=== PATIENT | male | born 1960 | race Caucasian/White ===

== ENCOUNTER 2023-09-22 13:07 | Outpatient (AMB) | payer OTHER, SELFPAY ==
--- NOTE | 2023-09-22 13:23 | HO.SPINEOV ---
Intake Intake Visit Reasons: neck and lower back pain Intake Note: Mr. Tipton is here today c/o neck and low back pain. 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 We know him from our practice at [place], we have seen him before in the past for issues with his legs. He was diagnosed with neuropathy. Today he comes in with complaints of neck pain, posterior headaches and arm pains. He will underwent a C6 TFE without any success. He is considering going back to opioid pain management to help with some of the symptoms. Currently, because he just got out of the hospital was treated with high-dose steroids the pain is not so bad. 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 He has been in the hospital with pneumonia and COPD flare-ups 3 times this year. I reviewed his imaging from [place] showing severe degenerative disc disease at C5-6 with foraminal stenosis, which is where we think his symptoms could be coming from. I had an honest conversation with him about the fact that in order to treat this surgically we would have to go through the front of his neck and that he would be high risk for complications given his unstable medical conditions and his COPD airway issues. Specifically retraction of the trachea and anesthesia/intubation would pose significant risk for him. I told him it unfortunately would be best to just try to continue to treat this medically as best as possible given his substantial risks. We would be glad to see him back if something changes with his overall medical conditions. Total amount of time spent in this visit was 20 minutes in discussion of symptoms, cervical MRI imaging results and subsequent plan of care Henrique Fraga MD,PhD [facility] Coding Level of Care Code Est Pt Level 3 (28769) Diagnoses Cervical radiculopathy M54.12
== END 2023-09-22 14:43 | disposition home or self-care (01) ==
PROVIDERS: PCP Internal Medicine; Referring Provider Physician Assistant; Visit Provider Physician Assistant
DX: M54.12 Radiculopathy, cervical region (principal)
CPT/HCPCS: 99213

== ENCOUNTER → 2023-09-22 13:07 | Outpatient (BNVA) | payer OTHER, SELFPAY | PROVIDERS: Visit Provider Physician Assistant | DX: M54.12 Radiculopathy, cervical region (principal) | CPT/HCPCS: 99212 ==

== ENCOUNTER 2025-08-18 11:45 | Outpatient (AMB) | payer MEDICARE, MEDICAID, SELFPAY ==
--- NOTE | 2025-08-18 11:47 | A.PHYSOV_ITS ---
Vital Signs 08/18/25 11:49 Height 5 ft 8 in Weight 224 lb BMI 34.1 Intake Visit Reasons: 3M FUV Intake Note: Patient is a 65 year old male in office today for his 3 month narcotic management appointment. 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 Tipton is a 65-year-old male seen in evaluation today for chronic pain. His most pressing issues include cervical radiculitis, shoulder pain and low back pain with radiculopathy. He has not been responsive to cortisone injection. Patient is considering spinal cord stimulator with another pain management office. Patient has contracted for OxyContin 20 mg twice a day. He reports that the OxyContin usually works for about 8 hours. Patient is experiencing progressive lower extremity weakness. Patient has been prescribed a walker. Patient did not respond to Lyrica or gabapentin. Patient is anticoagulated. [facility] Surgical History (Updated 08/14/25 @ 17:30 by Keya Diaz MA) S/P CABG (coronary artery bypass graft) (Unknown) Social History (Updated 08/14/25 @ 17:31 by Keya Diaz MA) Household Members: Spouse Alcohol intake: current Alcohol intake frequency: does not drink Patient Tobacco Use Status: Never used Tobacco Current occupational status: retired Review of Systems Narrative Neck pain, low back pain with lower extremity weakness. No incontinence, saddle anesthesia urinary retention. Physical Exam Exam Exam: Cervical Spine: Examination of the cervical spine, there is no visible swelling or deformity. He is tender to bilateral upper trapezius with palpable spasm. She has marked limited range of motion of his cervical spine particularly extension and lateral rotation. Special Tests: Axial Compression test: Negative Spurlings test: Negative Lhermitte's sign is Negative Upper Extremities: Full range of motion bilateral upper extremities. Nontender to palpation. Negative Neer testing. Full range of motion of his elbow wrist and hand. Equal softball core molder strength bilaterally. Neuro: Sensation: Intact to upper extremities bilateral to light touch Strength C5 (Elbow Flexion): 5/5 on the left and 5/5 on the right. C6 (Elbow Ext): 5/5 on the left and 5/5 on the right. C7 (Elbow Ext): 5/5 on the left and 5/5 on the right. C8 (Finger Flex): 5/5 on the left and 5/5 on the right. T1 (Finger Abd/Add): 5/5 on the left and 5/5 on the right. DTR: C5 (Biceps): Left 1 Right 1 C6 (Brachioradialis): Left 1 Right 1 C7 (Triceps): Left 0 Right 0 Reyes sign: Negative No pathologic clonus. No involuntary movement. Lumbar Spine: Examination of his lumbar spine, there is no visible swelling or deformity. He is tender to lower lumbar facets. He is otherwise nontender. Full range of motion of his lumbar spine. He does have an increase in pain with facet loading. Special Tests: Lhermittes sign was negative Heel Toe walk is normal Left straight leg raise: Negative Right straight leg raise: Negative Special tests Oscar test is negative Ganslen's test is negative SI Joint compression test negative Grey test negative Piriformis stretch is negative Lower Extremities: Full range of motion bilateral lower extremities. No calf pain or edema. Neuro: Sensation: Intact to lower extremities bilaterally Strength L2 (Psoas): 5/5 on the left and 5/5 on the right. L3 (Quads): 5/5 on the left and 5/5 on the right. L4 (Ant tibialis): 5/5 on the left and 5/5 on the right. L5 (EHL) 5/5 on the left and 5/5 on the right. S1 (Gastroc): 5/5 on the left and 5/5 on the right. DTR L4: (Patellar) Left 1 Right 1 S1: (Achilles) Left 1 Right 1 Babinski Downgoing No pathologic clonus. No involuntary movement. Vital Signs: BMI result Body Mass Index 34.1 Assessment & Plan Assessment & Plan (1) Cervicalgia: Code(s): M54.2 - Cervicalgia Category: Medical (2) Lumbar radiculopathy: Code(s): M54.16 - Radiculopathy, lumbar region Category: Medical Plan Mr. Tipton is a 65-year-old male seen in evaluation today for chronic pain management. Epidural injection has not been helpful for the patient. Patient is currently involved with trial for spinal cord stimulator. He finds that OxyContin 20 mg becoming less effective. I recommend Butrans 10 mg for pain control as well as antagonist to reduce his risk of overdose. Patient will not operate any heavy machinery while taking the medication. I reviewed his mass pat and there are no red flags. We discussed the benefits of proper nutrition and exercise to maintain a healthy body weight to improve longevity and function. We also discussed the benefits of proper lifting techniques, core strengthening and proper posture. Follow-up in 3 months. Thank you for allowing me to participate in the care of your patient. Medications: New buprenorphine 10 mcg/hour (Butrans) 1 patch transdermal QWEEK 4 ea 0RF M54.12 - Radiculopathy, cervical region, M54.16 - Radiculopathy, lumbar region Coding Level of Care Code Tele Est Pt Level 3 (14983) Diagnoses Cervicalgia M54.2 Lumbar radiculopathy M54.16
[2025-08-18 11:49] VITALS: BMI 34.1
--- OUTSIDE RECORDS SUMMARY | 2025-08-18 15:40 | XMS_ITS | Encounter Summary ---
Author Organization [facility] Address [address] [place] [address] [address] [place] [address] Phone Care Team Providers Care Customer Development Representative Name Role Phone Remy Carvajal MD Primary Care Provider Encounter Details Date Type Department Care Team (Late st Contact Info) Description 07/26/2023 Procedure Pass [facility] [place] Referral Images [address] [place] [address] Social History Tobacco Use Types Packs/Day Years Used Date Smoking Tobacco: Never Assessed Education Answer Date Recorded Are you interested in more education? Not on bryan e 07/21/2023 Are you concerned about learning? Not on file 07/21/2023 No 07/21/2023 No 07/21/2023 Digital Access Answer Date Recorded No 07/21/2023 No 07/21/2023 Reliable internet access at home? Not on file 07/21/2023 Device with a working camera? Not on file Sex and Gender Information Value Date Recorded Sex Assigned at Male 07/18/2023 2:55 PM EDT Legal Sex Male 2:52 PM EDT Gender Identity Male 07/18/2023 2:55 PM EDT Sexual Orientation Straight 07/18/2023 2: 55 PM EDT documented as of this encounter Plan of Treatment Upcoming Encounters Date Type Department Care Team (Late st Contact Info) Description 10/01/2025 1:45 PM EST Appointment [facility] [address], [address] [place] [address] Juancarlos Contreras MD [address] [place], [place] [id number] [place] [address] [email or web address] documented as of this encounter Visit Diagnoses Not on filedocumented in this encounter Care Teams Customer Development Representative Relationship Specialty Start Date End Date Remy Carvajal MD [address] [place] [address] PCP - General Internal Medicine 07/18/23 documented as of this encounter Additional Source Comments The information contained in this document represents components of the legal health record. It is not the complete legal health record.[facility]
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
--- OUTSIDE RECORDS SUMMARY | 2025-08-18 15:40 | XMS_ITS | Clinical Summary ---
Author Organization [facility] Address [address] [place] [phone] Phone Care Team Providers Care Plant Tour Guide Name Role Phone Remy Carvajal MD Primary Care Provider Allergies Active Allergy Reactions Criticality Noted Date Comments Levofloxacin Hallucinations High 07/13/2020 Morphine Hallucinations,Hypot ension, Unknown High 06/09/2014 Rqopwir-Ezi-Sxd Reductase Inhibitors Myalgia Low 07/13/2020 Medications albuterol (VENTOLIN HFA) 90 mcg/actuation inhaler Inhale 2 puffs into the lungs. 04/18/2023 Active budesonide-formo terol (SYMBICORT) 160-4.5 mcg/actuation inhaler Inhale 2 puffs into the lungs. 04/18/2023 Active cholecalciferol (VITAMIN D3) 5,000 unit tablet Take by mouth. Active clopidogrel (PLAVIX) 75 mg tablet Take 1 tablet by mouth daily. 04/12/2023 Active ezetimibe (ZETIA) 10 mg tablet Take 1 tablet by mouth daily. 05/17/2023 Active isosorbide mononitrate (IMDUR) 120 MG 24 hr tablet Take 1 tablet by mouth daily. 04/18/2023 Active nitroglycerin (NITROLINGUAL) 400 mcg/spray spray Place 0.4 mg under the tongue. 05/02/2023 Active oxyCODONE (OXYCONTIN) 10 mg 12 hr tablet Take 10 mg by mouth 2 (two) times a day. 12/25/2023 Active Medication-Free Text CBD cream topical prn Active meclizine (ANTIVERT) 25 mg tablet Take 1 tablet (25 mg total) by mouth 3 (three) times a day as needed. 02/08/2024 Active dilTIAZem (CARDIZEM CD) 180 MG 24 hr capsuleIndicatio ns:Coronary artery vasospasm,Vasosp astic angina Take 1 capsule by mouth twice daily 180 capsule 04/22/2025 Active amLODIPine (NORVASC) 10 MG tablet Take 10 mg by mouth daily. 03/12/2025 Active ELIQUIS 5 mg tablet Take 5 mg by mouth 2 (two) times a day. 05/13/2025 Active cyanocobalamin, vitamin B-12, 1000 MCG tablet Take 1,000 mcg by mouth daily. Active spironolactone (ALDACTONE) 25 MG tablet Take 1 tablet by mouth every morning. 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 Cardiac PET showed low normal MBF in RCA but no clear ischemia. Per FJ's review of prior cath 04/2023, 2 potential targets for PCI but both are small vessels and unlikely to explain severity of angina. No longer taking Repatha as insurance stopped paying for it. Intolerant of statins. No longer taking Ranolazine due to insurance issues. Current anti-anginals: Coreg 20 mg daily, amlodipine 10 mg daily, Imdur 120 mg daily, sl TNG spray daily Plan: - coronary, bypass graft angio and possible ACH challenge to assess for microvascular angina with Dr. Clark. - access RIJ, LRA - f/u Dr. Trivedi Diverticulosis 08/13/2023 08/13/2023 Essential hypertension 08/13/2023 3 Overview (08/13/2023): Last Assessment & Plan: Well-controlled on antianginals but increasing carvedilol dosing for antianginal effect Dyspnea on exertion 10/24/2022 08/13/2023 COPD (chronic obstructive pulmonary disease) wit h emphysema 06/24/2021 08/13/2023 Obesity (BMI 30.0-34.9) 02/23/2018 08/13/20 23 S/P CABG x 3 12/07/2016 08/13/2023 Overview (08/13/2023): Dr. Espinoza Last Assessment & Plan: This [...] stenosis. He will follow-up with his primary ssas developer as scheduled in about 4 weeks. They will decide based on this heart catheterization if a referral for chronic total occlusion evaluation possibly with Dr. Lucero is warranted or not at this point. Mixed hyperlipidemia 05/27/2015 08/13/2023 Overview (08/13/2023): -Severe myalgias with statins -Tried to get [...] the right pharmacy and it is affordable Encounters Date Type Department Care Team Description 08/12/2025 11:00 AM EST Telemedicine [facility] [address] [place] [phone] Darvni Fierro, PhD History of post traumatic stress disorder (Primary Dx) 08/02/2025 Orders Only [facility] [address] [place] [id number] Juancarlos Contreras MD 07/29/2025 1:00 PM EST Telemedicine [facility] [address] [place] [phone] Darvin Fierro, PhD Posttraumatic stress disorder (Primary Dx) 07/02/2025 7:47 AM EDT - 07/02/2025 11:59 PM EDT Hospital Encounter [facility] [address] [place] [phone] Juancarlos Contreras MD Discharge Disposition: Home or Self Care 06/03/2025 Orders Only [facility] [address] [place] [phone] Juancarlos Contreras MD 05/22/2025 Orders Only [facility] [address] [place] [phone] Juancarlos Contreras MD Refractory angina (Primary Dx); Chest pain, unspecified type 05/22/2025 Telephone [facility] [address], [address] [place] [address] Juancarlos Contreras MD 05/19/2025 Telephone [facility] [address] [place] [address], [address] [place] [address] Juancarlos Contreras MD from Last 3 Months Social History Tobacco Use Types Packs/Day Years Used Date Smoking Tobacco: Former Cigarettes Smokeless Tobacco: Never Alcohol Use Standard Drinks/Week Comments Not Currently 0 (1 standard drink = 0.6 oz pur e alcohol) Education Answer Date Recorded Are you interested [...] Orientation Straight 07/18/2023 2: 55 PM EDT Last Filed Vital Signs Vital Sign Reading Time Taken Comments Blood Pressure 114/66 05/13/2025 1:26 PM EDT Pulse 82 05/13/2025 1:26 PM EDT Temperature 36.8 C (98.3 F) 05/13/2025 1:26 PM EDT Respiratory Rate 18 02/08/2024 8:35 AM EDT Oxygen Saturation 100% 05/13/2025 1:26 PM EDT Inhaled Oxygen Concentration - - Weight 108.9 kg (240 lb) 08/23/2023 8:42 AM EST Height 172.7 cm (5' 8 ) 08/23/2023 8:42 AM EST Body Mass Index 36.49 08/23/2023 8:42 AM EST Plan of Treatment Upcoming Encounters Date Type Department Care Team (Late st Contact Info) Description 10/01/2025 1:45 PM EST Appointment [facility] [address] [place] [address], [address] [place] [address] Juancarlos Contreras MD [address] [place] [address] [email or web address] Maintenance Due Date Last Done Comments POTASSIUM LEVEL 1959 DEPRESSION SCREENING 1971 SMOKING Hx and SMOKELESS TOBACCO SCREENING 02/21/1972 HEPATITIS C SCREENING 1977 SCREENING FOR DIABETES 1994 COLOGUARD 02/21/2004 COLONOSCOPY 02/21/2004 COLORECTAL CANCER SCREENING 02/21/2004 FIT TEST 02/21/2004 FOBT 02/21/2004 SIGMOIDOSCOPY 02/21/2004 VIRTUAL COLONOSCOPY 02/21/2004 RSV VACCINE (1 - Risk 50-74 years 1-dose series) 2009 ZOSTER VACCINES (1 of 2) 2009 BLOOD PRESSURE 02/12/2024 08/14/2023 ABDOMINAL AORTIC ANEURYSM (AAA) SCREENING 02/21/2024 CREATININE LEVEL 01/24/2025 01/25/2024 INFLUENZA VACCINE (#1) 2025 COVID-19 VACCINE (1 - 2024-2 6 season) 2025 LIPID PANEL 11/07/2025 11/07/2024, 01/25/2024, 08/22/2023 PNEUMOCOCCAL VACCINES (50+ years) (3 of 3 - PCV20 or PCV21) 12/14/2026 12/14/2021, 08/25/2005 Adult Td,Tdap Booster 12/15/2031 12/14/2021 , 06/27/2011 HEPATITIS A VACCINES Aged Out No long er eligible based on patient's age to complete this topic HIB VACCINES Aged Out No longer eligi ble based on patient's age to complete this topic MENINGOCOCCAL VACCINES (ACWY) Aged Out No longer eligible based on patient's age to complete this topic MENINGOCOCCAL VACCINES (B) Aged Out N o longer eligible based on patient's age to complete this topic Medical Devices Not on file Procedures Procedure Name Priority Date/Time Associated Diagnosis Comments MRI THORACIC LUMBAR SPINE Routine 05/22/2025 2:18 PM EDT Chest pain, unspecified type Refractory angina from Last 3 Months Insurance MEDICARE PART A & B MEDICARE PART A & B MEDICARE PART A & B MEDICARE PART A & B MEDICARE PART A & B MEDICARE PART A & B Advance Directives For more information, please contact: [phone] (9AM - 5PM [facility], Monday-Monday) * Full Code (Latest Code Status on File) Date Activated Date Inactivated Comments 02/07/2024 6:38 PM Question Answer Comments Code Status Confirmed With: Patient Care Teams Plant Tour Guide Relationship Specialty Start Date End Date Remy Carvajal MD [address] [place] [phone] PCP - General Internal Medicine 07/18/23 Additional Source Comments The information contained in this document represents components of the legal health record. It is not the complete legal health record.[facility]
--- OUTSIDE RECORDS SUMMARY | 2025-08-18 15:41 | XMS_ITS | Clinical Summary ---
Author Organization [facility] Address [address] [place] [address] Care Team Providers Care Customer Response Representative Name Role Phone Demi Doran MD Primary Care Provider [phone] Allergies Active Allergy Reactions Criticality Noted Date Comments Levofloxacin Delirium/Confusion/Psychosis Low 07/13 Morphine Unknown/Patient and Family Unable to Define Medium 07/13/2020 Statins Myalgia/Myositis/Arthralgia/Arthritis Low 07/13/2020 Social History Tobacco Use Types Packs/Day Years Used Date Smoking Tobacco: Never Assessed Sex and Gender Information Value Date Recorded Sex Assigned at Not on file Legal Sex Male 9:08 AM EDT Gender Identity Not on file Sexual Orientation Not on file Plan of Treatment Health Maintenance Due Date Last Done Comments Advance Care Planning 1960 Hepatitis C Virus Screening 1960 DTaP/Tdap/Td Vaccines (1 - Tdap) 1978 Colonoscopy 02/21/2004 Pneumococcal Vaccines 50+ (1 of 1 - PCV) 2009 Zoster (Shingles) Vaccine (1 of 2) 2009 Influenza Vaccine 04/25/2025 COVID-19 Vaccine (1 - 2023-2 5 season) 2025 RSV Vaccine 50 years and old er and Patients (1 - 1-dose 75+ series) 2034 Hepatitis B Vaccines Aged Out No long er eligible based on patient's age to complete this topic Insurance [employer] Care Teams Customer Response Representative Relationship Specialty Start Date End Date Demi Doran MD [address] [place] [address] [place] [phone] PCP - General Internal Medicine 06/17/20
--- OUTSIDE RECORDS SUMMARY | 2025-08-18 15:41 | XMS_ITS | Clinical Summary ---
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 AM EDT) Anatomical Region Laterality Modality Spine, C-spine Radiographic Deidra ging 06/20/2025 11:5 7 AM EDT Impressions 06/20/2025 11:59 AM EDT Satisfactory appearance following anterior fusion at C5-6. Straightening of the cervical lordosis consistent with surgery and muscle spasm. There is no abnormal relative bony motion with flexion and extension. Range of motion is extremely limited. Degenerative disc disease is present at the C2-3, C3-4, and C6-7 levels. Code 49087 -------- FINAL REPORT -------- Dictated By: Juancarlos Boswell Dictated Date: 06/20/2025 11:57 ET Assigned Physician: Juancarlos Boswell Reviewed and Electronically Signed By: Juancarlos Boswell Signed Date: 06/20/2025 11:59 ET Workstation ID: [id number] Transcribed By: Self Edit Transcribed Date: 06/20/2025 11:57 ET Narrative 06/20/2025 11:59 AM EDT HISTORY: The patient is a 65-year-old male who underwent cervical spine fusion surgery approximately one month previously. FINDINGS: Lateral views of the cervical spine in neutral, flexion, and extension positions, along with an AP view, are obtained. The patient seen to have undergone anterior fusion at the C5-6 level. The surgical hardware appears well-positioned and intact. There is straightening of the cervical lordosis consistent with surgery as well as muscle spasm. Alignment is otherwise anatomic. No fracture is seen. There is narrowing of the C2-3, C3-4, and C6-7 disc spaces consistent with degenerative disc disease. There is no abnormal relative bony motion with flexion and extension. Range of motion is extremely limited. The patient is seen to have undergone a previous coronary artery bypass surgery. Procedure Note Juancarlos Boswell MD - 06/20/2025 HISTORY: The patient is a 65-year-old male who underwent cervical spinefusion surgery approximately one month previously. FINDINGS: Lateral views of the cervical spine in neutral, flexion, andextension positions, along with an AP view, are obtained. The patientseen to have undergone anterior fusion at the C5-6 level. The surgicalhardware appears well-positioned and intact. There is straightening ofthe cervical lordosis consistent with surgery as well as muscle spasm.Alignment is otherwise anatomic. No fracture is seen. There is narrowingof the C2-3, C3-4, and C6-7 disc spaces consistent with degenerative discdisease. There is no abnormal relative bony motion with flexion andextension. Range of motion is extremely limited. The patient is seen to have undergone a previous coronary artery bypasssurgery. IMPRESSION: Satisfactory appearance following anterior fusion at C5-6. Straighteningof the cervical lordosis consistent with surgery and muscle spasm. Thereis no abnormal relative bony motion with flexion and extension. Range ofmotion is extremely limited. Degenerative disc disease is present at theC2-3, C3-4, and C6-7 levels. Code 54040 -------- FINAL REPORT -------- Dictated By: Juancarlos Boswell Dictated Date: 06/20/2025 11:57 ET Assigned Physician: Juancarlos Boswell Reviewed and Electronically Signed By: Juancarlos Boswell Signed Date: 06/20/2025 11:59 ET Workstation ID: [id number] Transcribed By: Self Edit Transcribed Date: 06/20/2025 11:57 ET Chela Ham MD IMG XR PROCEDURES Final Result * Polysomnography (06/19/2025 4:44 PM EDT) us Historical Provider [facility] ORDERABLES F inal Result * (ABNORMAL) Basic metabolic panel (06/19/2025 2:39 PM EDT) Sodium 137 133 - 145 mmol/L LAB CHEMISTRY METHOD 06/19/2025 6:59 PM EDT [facility] Potassium 4.2 3.5 - 5.5 mmol/L LAB CHEMISTRY METHOD 06/19/2025 6:59 PM EDT [facility] Chloride 102 96 - 110 mmol/L LAB CHEMISTRY METHOD 06/19/2025 6:59 PM [facility] CO2 29 21 - 32 mmol/L LAB CHEMISTRY METHOD 06/19/2025 6:59 PM EDT [facility] Anion Gap 6 3 - 11 LAB CHEMISTRY METHOD 06/19/2025 6:59 PM T [facility] Glucose 103(H) 70 - 100 mg/dL LAB CHEMISTRY METHOD 06/19/2025 6:59 PM EDT [facility] BUN 17 5 - 25 mg/dL LAB CHEMISTRY METHOD 06/19/2025 6:59 PM EDT [facility] Creatinine 1.13 0.70 - 1.30 mg/dL LAB CHEMISTRY METHOD 06/19/2025 6:59 PM EDT [facility] eGFR 72 >=60 mL/min/1. 73m2 LAB CHEMISTRY METHOD 06/19/2025 6:59 PM EDT [facility] Comment:Calculation based on the Chronic Kidney Disease Epidemiology Collaboration (CKD-EPI) equation refit without adjustment for race. BUN/Creatinine Ratio 15.0 LAB CHEMISTRY METHOD 06/19/2025 6:59 PM EDT [facility] Calcium 9.8 8.5 - 10.5 mg/dL LAB CHEMISTRY METHOD 06/19/2025 6:59 PM EDT [facility] Blood Venous blood specimen / Unknown Venipuncture / Unknown 06/19/2025 2:39 PM EDT 06/19/2025 2:39 PM EDT Remy Carvajal MD LAB BLOOD ORDERABLES Final Result [facility] [address] [place] [address], * MR Lumbar Spine wo Contrast (06/04/2025 9:47 AM EDT) Anatomical Region Laterality Modality L-spine, Spine Magnetic Resonan ce 06/06/2025 3:03 PM EDT Impressions 06/06/2025 4:19 PM EDT Lower lumbar predominant degenerative disc and facet changes without high-grade foraminal or spinal canal stenosis -------- FINAL REPORT -------- Dictated By: JEREMY LAMAR Dictated Date: 06/06/2025 15:03 ET Assigned Physician: JEREMY LAMAR Reviewed and Electronically Signed By: ROXANNA, JEREMY Signed Date: 06/06/2025 16:19 ET Workstation ID: [id number] Transcribed By: Self Edit Transcribed Date: 06/06/2025 15:03 ET Narrative 06/06/2025 4:19 PM EDT PROCEDURE: Lumbar spine MRI INDICATION: Pain TECHNIQUE: Multiplanar, multisequence MRI of the Lumbar spine Without contrast. COMPARISON: 11/20/2024 FINDINGS: Lumbar lordosis is maintained. Levoconvex thoracolumbar curvature. No fracture or suspicious marrow replacing lesion. Degenerative loss of normal disc height and signal with associated degenerative endplate spurring, most pronounced at L3-4. Lower lumbar predominant degenerative facet arthritis, most pronounced on the left at L4-5 as well as on the right at L5-S1. Conus medullaris terminates at L1. No epidural collection or mass is seen within the spinal canal. Paraspinal muscles are within normal limits. Colonic diverticulosis. Visualized intra-abdominal and pelvic structures are otherwise within normal limits. Findings by level: L1-2: No foraminal or spinal canal stenosis. L2-3: No foraminal or spinal canal stenosis. L3-4: Diffuse disc bulge with bilateral facet arthropathy. Mild foraminal stenosis bilaterally. No spinal canal stenosis. L4-5: Diffuse disc bulge with endplate spurring and bilateral facet arthropathy. Mild foraminal stenosis bilaterally. Mild spinal canal stenosis with effacement of the subarticular zones. L5-S1: Bilateral facet arthropathy. No foraminal or spinal canal stenosis. Procedure Note Jeremy Lamar MD - 06/06/2025 PROCEDURE: Lumbar spine MRI INDICATION: Pain TECHNIQUE: Multiplanar, multisequence MRI of the Lumbar spine Withoutcontrast. COMPARISON: 11/20/2024 FINDINGS: Lumbar lordosis is maintained. Levoconvex thoracolumbar curvature. No fracture or suspicious marrow replacing lesion. Degenerative loss of normal disc height and signal with associateddegenerative endplate spurring, most pronounced at L3-4. Lower lumbar predominant degenerative facet arthritis, most pronounced onthe left at L4-5 as well as on the right at L5-S1. Conus medullaris terminates at L1. No epidural collection or mass is seenwithin the spinal canal. Paraspinal muscles are within normal limits. Colonic diverticulosis.Visualized intra-abdominal and pelvic structures are otherwise withinnormal limits. Findings by level: L1-2: No foraminal or spinal canal stenosis. L2-3: No foraminal or spinal canal stenosis. L3-4: Diffuse disc bulge with bilateral facet arthropathy. Mild foraminalstenosis bilaterally. No spinal canal stenosis. L4-5: Diffuse disc bulge with endplate spurring and bilateral facetarthropathy. Mild foraminal stenosis bilaterally. Mild spinal canalstenosis with effacement of the subarticular zones. L5-S1: Bilateral facet arthropathy. No foraminal or spinal canalstenosis. IMPRESSION: Lower lumbar predominant degenerative disc and facet changes withouthigh-grade foraminal or spinal canal stenosis -------- FINAL REPORT -------- Dictated By: JEREMY LAMAR Dictated Date: 06/06/2025 15:03 ET Assigned Physician: JEREMY LAMAR Reviewed and Electronically Signed By: JEREMY LAMAR Signed Date: 06/06/2025 16:19 ET Workstation ID: [id number] Transcribed By: Self Edit Transcribed Date: 06/06/2025 15:03 ET Juancarlos Contreras MD IMG MRI PROCEDURES Final Result * MR Thoracic Spine wo Contrast (06/04/2025 9:47 AM EDT) Anatomical Region Laterality Modality T-spine, Spine Magnetic Resonan ce 06/06/2025 4:19 PM EDT Impressions 06/06/2025 4:21 PM EDT Degenerative changes throughout the thoracic spine without significant spinal canal or foraminal stenosis. -------- FINAL REPORT -------- Dictated By: JEREMY LAMAR Dictated Date: 06/06/2025 16:19 ET Assigned Physician: JEREMY LAMAR Reviewed and Electronically Signed By: JEREMY LAMAR Signed Date: 06/06/2025 16:21 ET Workstation ID: [id number] Transcribed By: Self Edit Transcribed Date: 06/06/2025 16:19 ET Narrative 06/06/2025 4:21 PM EDT PROCEDURE: Thoracic spine MRI INDICATION: Pain TECHNIQUE: Multiplanar, multisequence MRI of the thoracic spine Without contrast. COMPARISON: No priors available. FINDINGS: Exaggerated thoracic kyphosis. No fracture or suspicious marrow replacing lesion. Multilevel degenerative loss of normal disc height and signal degenerative fusion across several thoracic disc spaces. No focal disc protrusion, spinal stenosis, or mass effect upon the cord. Thoracic cord is normal in signal and morphology. No epidural collection or mass is seen within the spinal canal. Mild multilevel degenerative facet arthritis throughout the thoracic spine without significant foraminal stenosis. Paraspinal muscles are within normal limits. Visualized upper abdominal and intrathoracic structures are unremarkable. Procedure Note Jeremy Lamar MD - 06/06/2025 PROCEDURE: Thoracic spine MRI INDICATION: Pain TECHNIQUE: Multiplanar, multisequence MRI of the thoracic spine Withoutcontrast. COMPARISON: No priors available. FINDINGS: Exaggerated thoracic kyphosis. No fracture or suspicious marrow replacing lesion. Multilevel degenerative loss of normal disc height and signal degenerativefusion across several thoracic disc spaces. No focal disc protrusion,spinal stenosis, or mass effect upon the cord. Thoracic cord is normal in signal and morphology. No epidural collectionor mass is seen within the spinal canal. Mild multilevel degenerative facet arthritis throughout the thoracic spinewithout significant foraminal stenosis. Paraspinal muscles are within normal limits. Visualized upper abdominaland intrathoracic structures are unremarkable. IMPRESSION: Degenerative changes throughout the thoracic spine without significantspinal canal or foraminal stenosis. -------- FINAL REPORT -------- Dictated By: JEREMY LAMAR Dictated Date: 06/06/2025 16:19 ET Assigned Physician: JEREMY LAMAR Reviewed and Electronically Signed By: JEREMY LAMAR Signed Date: 06/06/2025 16:21 ET Workstation ID: [id number] Transcribed By: Self Edit Transcribed Date: 06/06/2025 16:19 ET Juancarlos Contreras MD [facility] – [place] MRI PROCEDURES Final Result * Prostate specific antigen diagnostic (05/19/2025 2:23 PM EDT) PSA <0.06 0.00 - 4.00 ng/mL LAB CHEMISTRY METHOD 05/19/2025 5:51 PM EDT [facility] Blood Venous blood specimen / Unknown Venipuncture / Unknown 05/19/2025 2:23 PM EDT 05/19/2025 2:23 PM EDT Narrative [facility] - 05/19/2025 5:51 PM EDT The Siemens Advia Centaur Chemiluminescent Immunoassay is used. Results obtained with different assay methods or kits cannot be used interchangeably. Results cannot be interpreted as absolute evidence of the presence or absence of malignant disease. us Moses Hernandez MD LAB BLOOD ORDERABLES Final Result [facility] [address] [place] [address], [place] [phone] * (ABNORMAL) CBC auto differential (05/19/2025 2:23 PM EDT) WBC 12.4(H) 4.8 - 10.8 K/mcL LAB HEMETOLOGY METHOD 05/19/2025 4:30 PM EDT [facility] RBC 4.90 4.50 - 5.50 M/mcL LAB HEMETOLOGY METHOD 05/19/2025 4:30 PM EDT [facility] Hemoglobin 14.8 13.5 - 17.5 g/dL LAB HEMETOLOGY METHOD 05/19/2025 4:30 PM EDT [facility] Hematocrit 46.0 42.0 - 54.0 % LAB HEMETOLOGY METHOD 05/19/2025 4:30 PM EDT [facility] MCV 93.5 79.0 - 98.0 FL LAB HEMETOLOGY METHOD 05/19/2025 4:30 PM EDT [facility] MCH 30.1 27.0 - 32.0 pcg LAB HEMETOLOGY METHOD 05/19/2025 4:30 PM EDT [facility] MCHC 32.2 32.0 - 37.0 g/dL LAB HEMETOLOGY METHOD 05/19/2025 4:30 PM EDT [facility] RDW 14.6 11.0 - 15.0 % LAB HEMETOLOGY METHOD 05/19/2025 4:30 PM EDT [facility] Platelets 280 130 - 400 K/mcL LAB HEMETOLOGY METHOD 05/19/2025 4:30 [facility] MPV 10.1 7.0 - 11.0 FL LAB HEMETOLOGY METHOD 05/19/2025 4:30 PM EDT [facility] NRBC 0.0 <1.0 % LAB HEMETOLOGY METHOD 05/19/2025 4:30 PM EDT [facility] NRBC Absolute 0.00 <0.10 K/mcL LAB HEMETOLOGY METHOD 05/19/2025 4:30 [facility] Neutrophils Relative 75.1 % LAB HEMETOLOGY METHOD 05/19/2025 4:30 PM [facility] Lymphocytes Relative 13.4 % LAB HEMETOLOGY METHOD 05/19/2025 4:30 [facility] Monocytes Relative 8.1 % LAB HEMETOLOGY METHOD 05/19/2025 4:30 [facility] Eosinophils Relative 2.2 % LAB HEMETOLOGY METHOD 05/19/2025 4:30 PM [facility] Basophils Relative 0.6 % LAB HEMETOLOGY METHOD 05/19/2025 4:30 [facility] Immature Granulocytes Relative 0.6 % LAB HEMETOLOGY METHOD 05/19/2025 4:30 PM [facility] Neutrophils Absolute 9.30(H) 1.50 - 7.00 K/mcL LAB HEMETOLOGY METHOD 05/19/2025 4:30 [facility] Lymphocytes Absolute 1.66 1.00 - 5.00 K/mcL LAB HEMETOLOGY METHOD 05/19/2025 4:30 PM [facility] Monocytes Absolute 1.01(H) 0.20 - 1.00 K/mcL LAB HEMETOLOGY METHOD 05/19/2025 4:30 PM EDT [facility] Eosinophils Absolute 0.27 0.00 - 0.50 K/[facility] LAB HEMETOLOGY METHOD 05/19/2025 4:30 PM EDT [facility] Basophils Absolute 0.08 0.00 - 0.20 K/[facility] LAB HEMETOLOGY METHOD 05/19/2025 4:30 PM EDT [facility] Immature Granulocytes Absolute 0.08(H) 0.00 - 0.03 K/mcL LAB HEMETOLOGY METHOD 05/19/2025 4:30 PM EDT [facility] Blood Venous blood specimen / Unknown Venipuncture / Unknown 05/19/2025 2:23 PM EDT 05/19/2025 2:23 PM EDT Msoes Hernandez MD LAB BLOOD ORDERABLES Final Result [facility] [address] [place] [address], * (ABNORMAL) Comprehensive metabolic panel (05/19/2025 2:23 PM EDT) Sodium 139 133 - 145 mmol/L LAB CHEMISTRY METHOD 05/19/2025 5:13 PM [facility] Potassium 5.0 3.5 - 5.5 mmol/L LAB CHEMISTRY METHOD 05/19/2025 5:13 PM [facility] Chloride 104 96 - 110 mmol/L LAB CHEMISTRY METHOD 05/19/2025 5:13 PM [facility] CO2 30 21 - 32 mmol/L LAB CHEMISTRY METHOD 05/19/2025 5:13 PM [facility] Anion Gap 5 3 - 11 LAB CHEMISTRY METHOD 05/19/2025 5:13 PM [facility] Glucose 120(H) 70 - 100 mg/dL LAB CHEMISTRY METHOD 05/19/2025 5:13 PM [facility] BUN 16 5 - 25 mg/dL LAB CHEMISTRY METHOD 05/19/2025 5:13 PM [facility] Creatinine 1.27 0.70 - 1.30 mg/dL LAB CHEMISTRY METHOD 05/19/2025 5:13 PM [facility] eGFR 62 >=60 mL/min/1. 73m2 LAB CHEMISTRY METHOD 05/19/2025 5:13 PM [facility] Comment:Calculation based on the Chronic Kidney Disease Epidemiology Collaboration (CKD-EPI) equation refit without adjustment for race. BUN/Creatinine Ratio 12.6 LAB CHEMISTRY METHOD 05/19/2025 5:13 PM [facility] Calcium 9.3 8.5 - 10.5 mg/dL LAB CHEMISTRY METHOD 05/19/2025 5:13 PM [facility] AST (SGOT) 28 10 - 42 unit/L LAB CHEMISTRY METHOD 05/19/2025 5:13 PM [facility] ALT (SGPT) 34 10 - 60 unit/L LAB CHEMISTRY METHOD 05/19/2025 5:13 PM [facility] Alkaline Phosphatase 168(H) 42 - 121 unit/L LAB CHEMISTRY METHOD 05/19/2025 5:13 PM [facility] Total Protein 7.2 6.0 - 8.0 g/dL LAB CHEMISTRY METHOD 05/19/2025 5:13 PM [facility] Albumin 3.8 3.2 - 5.0 g/dL LAB CHEMISTRY METHOD 05/19/2025 5:13 PM [facility] Total Bilirubin 0.4 0.0 - 1.4 mg/dL LAB CHEMISTRY METHOD 05/19/2025 5:13 PM [facility] Blood Venous blood specimen / Unknown Venipuncture / Unknown 05/19/2025 2:23 PM EDT 05/19/2025 2:23 PM EDT us Moses Hernandez MD LAB BLOOD ORDERABLES Final Result [facility] [address] [place] [address], * CT Lung Screening (04/19/2025 8:01 AM EDT) Anatomical Region Laterality Modality Chest Computed Tomogra phy 04/22/2025 4:02 PM EDT Impressions 04/22/2025 4:12 PM EDT Impression: No suspicious developing pulmonary nodule. No significant change. Lung-RADS Category: Lung-RADS 1: No nodules or definitely benign nodules. Continue annual screening with Low Dose Chest CT in 12 months. [facility] ([id number]) -------- FINAL REPORT -------- Dictated By: Meenu Bell Dictated Date: 04/22/2025 16:02 ET Assigned Physician: Meenu Bell Reviewed and Electronically Signed By: Meenu Bell Signed Date: 04/22/2025 16:12 ET Workstation ID: [id number] Transcribed By: Self Edit Transcribed Date: 04/22/2025 16:02 ET Narrative 04/22/2025 4:12 PM EDT History: 65 year-old 84 pack-year former smoker, asymptomatic, for lung cancer screening. Quit smoking 13 years ago. Personal history of prostate carcinoma. Comparison: 04/15/24 Technique: Helical volumetric imaging of the thorax was performed, using low- dose technique, without IV contrast. DLP: 103.53 mGy/cm CTDIvol: 3.22 mGy Athen[employer] VCT Iterative reconstruction technique Findings: Lungs and Airways: The trachea and central bronchial tree remain patent. Curvilinear opacity is again seen in the right lower lobe, extending to the pleura where there is mild juxtapleural consolidation, stable from previous, consistent with atelectasis or scar. Similar findings are noted at the base of the right middle lobe and lingula and in the left lower lobe, unchanged. No suspicious pulmonary nodule is seen. Pleura: Minimal stable pleural thickening is seen at the base of the right hemithorax. No pleural or pericardial effusions are seen. Base of neck, mediastinum and heart: The heart remains normal in size. Median sternotomy sutures and mediastinal surgical clips are consistent with coronary artery surgery. No developing thoracic lymphadenopathy is seen. Soft tissues: The overlying soft tissues are unremarkable. Abdomen: This study was performed without contrast and with lower than standard dose. These factors reduce the sensitivity for detection of small lesions in the upper abdomen. Surgical clips are seen in the epigastric region, suggesting prior hiatal hernia repair, unchanged. Diverticulosis of the partially imaged colon is noted. Thin marginal syndesmophytes are seen throughout the partially imaged spine, suggesting underlying ankylosing spondylitis or enteropathic arthritis. Procedure Note Meenu Bell MD - 04/22/2025 History: 65 year-old 84 pack-year former smoker, asymptomatic, for lungcancer screening. Quit smoking 13 years ago. Personal history of prostatecarcinoma. Comparison: 04/15/24 Technique: Helical volumetric imaging of the thorax was performed, usinglow-dose technique, without IV contrast. DLP: 103.53 mGy/cm CTDIvol: 3.22 mGy Athenix VCT Iterative reconstruction technique Findings: Lungs and Airways: The trachea and central bronchial tree remain patent.Curvilinear opacity is again seen in the right lower lobe, extending tothe pleura where there is mild juxtapleural consolidation, stable fromprevious, consistent with atelectasis or scar. Similar findings are notedat the base of the right middle lobe and lingula and in the left lowerlobe, unchanged. No suspicious pulmonary nodule is seen. Pleura: Minimal stable pleural thickening is seen at the base of the righthemithorax. No pleural or pericardial effusions are seen. Base of neck, mediastinum and heart: The heart remains normal in size.Median sternotomy sutures and mediastinal surgical clips are consistentwith coronary artery surgery. No developing thoracic lymphadenopathy isseen. Soft tissues: The overlying soft tissues are unremarkable. Abdomen: This study was performed without contrast and with lower thanstandard dose. These factors reduce the sensitivity for detection of smalllesions in the upper abdomen. Surgical clips are seen in the epigastricregion, suggesting prior hiatal hernia repair, unchanged. Diverticulosisof the partially imaged colon is noted. Thin marginal syndesmophytes are seen throughout the partially imagedspine, suggesting underlying ankylosing spondylitis or enteropathicarthritis. IMPRESSION: Impression: No suspicious developing pulmonary nodule. No significant change. Lung-RADS Category: Lung-RADS 1: No nodules or definitely benign nodules.Continue annual screening with Low Dose Chest CT in 12 months. [facility] LINDA ([id number]) -------- FINAL REPORT -------- Dictated By: Meenu Bell Dictated Date: 04/22/2025 16:02 ET Assigned Physician: Meenu Bell Reviewed and Electronically Signed By: Meenu Bell Signed Date: 04/22/2025 16:12 ET Workstation ID: [id number] Transcribed By: Self Edit Transcribed Date: 04/22/2025 16:02 ET Rebecca Lara MD [facility] [place] PROCEDURES Final Result * (ABNORMAL) Lipid panel with reflex to direct LDL (11/07/2024 10:17 AM EST) Cholesterol 199 0 - 200 mg/dL LAB CHEMISTRY METHOD 11/07/2024 12:23 PM [facility] Triglycerides 120 0 - 150 mg/dL LAB CHEMISTRY METHOD 11/07/2024 12:23 PM [facility] HDL 54 >=40 mg/dL LAB CHEMISTRY METHOD 11/07/2024 12:23 PM [facility] LDL Calculated 121(H) 0 - 100 mg/dL LAB CHEMISTRY METHOD 11/07/2024 12:23 PM [facility] VLDL Cholesterol Jason 24 mg/dL LAB CHEMISTRY METHOD 11/07/2024 12:23 PM [facility] Non HDL Chol. (LDL+VLDL) 145(H) <145 mg/dL LAB CHEMISTRY METHOD 11/07/2024 12:23 PM [facility] Chol/HDL Ratio 3.7 0.0 - 4.4 LAB CHEMISTRY METHOD 11/07/2024 12:23 PM EST [facility] Blood Venous blood specimen / Unknown Venipuncture / Unknown 11/07/2024 10:17 AM EST 11/07/2024 10:17 AM EST Filiberto MCKEON LAB BLOOD ORDERABLES Final Resu lt [facility] [address] [place] [address], * Colonoscopy (07/30/2015) Colonoscopy no interpretation , abstracted Anatomical Region Laterality Modality Other Historical Provider HEALTH MAINTENANCE Final Result * Hepatitis C Screening (07/09/2014) Hepatitis C Screening abstracted Historical Provider HEALTH MAINTENANCE Final Result from Last 3 Months or Most Recently Relevant to Health Maintenance Insurance MEDICARE [place]ICAID - [place] Care Teams Bindery Leadperson Relationship Specialty Start Date End Date Remy Carvajal MD [address] [place] [phone] PCP - General Internal Medicine 09/19/24
--- OUTSIDE RECORDS SUMMARY | 2025-08-18 15:41 | XMS_ITS ---
Author Name [facility] Organization Unknown Care Team Organization Name Specialty Phone Email Start Date End Da tex [facility] Remy Carvajal Primary Care 08/02/202204/25
--- OUTSIDE RECORDS SUMMARY | 2025-08-18 15:41 | XMS_ITS | Clinical Summary ---
Author Organization [facility] Address [address] [place] [address] Care Team Providers Care Staffing Executive Name Role Phone Remy Carvajal MD Primary Care Provider [phone] Allergies Active Allergy Reactions Criticality Noted Date Comments Levofloxacin 06/22/2022 Morphine 06/22/2022 Statins 06/22/2022 Medications Medication Sig Dispensed Refills Start Date End Date Status aspirin EC 81 MG tablet Take 1 tablet (81 mg total) by mouth daily. 0 Active nitroglycerin (NITROMIST) 400 MCG/SPRAY spray Place 1 spray under the tongue every 5 (five) minutes as needed for chest pain. 0 Active amLODIPine (NORVASC) tablet 10 mg Take 1 tablet (10 mg total) by mouth daily. 0 Active ezetimibe (ZETIA) tablet 10 mg Take 1 tablet (10 mg total) by mouth daily. 0 Active isosorbide mononitrate (IMDUR) 120 MG 24 hr tablet Take 1 tablet (120 mg total) by mouth daily. 0 Active meclizine (ANTIVERT) 25 MG tablet Take 1 tablet (25 mg total) by mouth 3 (three) times a day as needed. 0 Active Cholecalciferol (Vitamin D-3) 125 MCG (5000 UT) TABS Take by mouth. 0 Active clopidogrel (PLAVIX) 75 MG tablet Take 1 tablet (75 mg total) by mouth daily. 0 Active albuterol 108 (90 Base) MCG/ACT inhaler Inhale 2 puffs into the lungs every 6 (six) hours as needed for wheezing. 0 Active carvedilol (COREG) 3.125 MG tablet Take 1 tablet (3.125 mg total) by mouth 2 (two) times a day with meals. 0 Active pregabalin (LYRICA) capsule 50 mg Take 1 capsule (50 mg total) by mouth 3 (three) times a day. 0 Active Leuprolide Acetate (ELIGARD SC) Inject under the skin. 0 Active fentaNYL (DURAGESIC) 12 MCG/HR Place 1 patch onto the skin every third day. 0 Active Active Problems Problem Noted Date Diagnosed Date Prostate cancer 06/22/2022 Social History Tobacco Use Types Packs/Day Years Used Date Smoking Tobacco: Never Assessed Sex and Gender Information Value Date Recorded Sex Assigned at Not on file Gender Identity Not on file Sexual Orientation Not on file Job Start Date Occupation Industry Not on file Not on file Not on file Last Filed Vital Signs Vital Sign Reading Time Taken Comments Blood Pressure 115/69 03/13/2024 11:27 AM EDT Pulse 83 03/13/2024 11:27 AM EDT Temperature 36.9 C (98.4 F) 03/13/2024 11:27 AM EDT Respiratory Rate - - Oxygen Saturation 93% 03/13/2024 11:27 AM EDT Inhaled Oxygen Concentration - - Weight 104.8 kg (231 lb) 03/13/2024 11:27 AM EDT Height 172.7 cm (5' 8 ) 03/13/2024 11:27 AM EDT Body Mass Index 35.12 03/13/2024 11:27 AM EDT Plan of Treatment Health Maintenance Due Date Last Done Comments Hepatitis C Screening 1960 COVID-19 Vaccine (#1) 02/21/1964 Depression Screening 1971 Preventative Health Evaluation 1977 Shingrix-Zoster Vaccine (1 o f 2) 1978 Colon Cancer Screening (Colonoscopy) 02/21/2004 Fall Risk Assessment 02/21/2024 Influenza Vaccine (#1) 2025 Pneumococcal Vaccine (3 of 3 - PPSV23 or PCV20) 12/14/2026 12/14/2021, 08/25/2005 DTap / Tdap / Td (3 - Td or Tdap) 12/15/2031 12/14/2021, 06/27/2011 RSV Adult > 60+ Yrs or (1 - 1-dose 75+ series) 2034 Hepatitis B Vaccines Aged Out No long er eligible based on patient's age to complete this topic RSV Ped < 20 months Aged Out No longe r eligible based on patient's age to complete this topic Care Teams Staffing Executive Relationship Specialty Start Date End Date Remy Carvajal MD [address] [place] [phone] PCP - General Hospitalist Medicine 06/08/22
--- OUTSIDE RECORDS SUMMARY | 2025-08-18 15:41 | XMS_ITS | Encounter Summary ---
Author Organization [facility] Address [address] [place] [address] [address] [place] [address] Phone Care Team Providers Care Revenue Cycle Specialist Name Role Phone Remy Carvajal MD Primary Care Provider Encounter Details Date Type Department Care Team (Late st Contact Info) Description 02/07/2024 Procedure Pass [facility] Manager [address] [place] [id number] Social History Tobacco Use Types Packs/Day Years [...] Info) Description 10/01/2025 1:45 PM EST Appointment [facility] [address], [address] [place] [address] Juancarlos Contreras MD [address] [place] [address] [email or web address] documented as of this encounter Visit Diagnoses Not on filedocumented in this encounter Care Teams Revenue Cycle Specialist Relationship Specialty Start Date End Date Remy Carvajal MD [address] [place] [address] PCP - General Internal Medicine 07/18/23 documented as of this encounter Additional Source Comments The information contained in this document represents components of the legal health record. It is not the complete legal health record.[facility]
== END 2025-08-18 12:39 | disposition home or self-care (01) ==
LOC: HO.HPHYS 11:46
PROVIDERS: PCP Internal Medicine; Visit Provider Physician Assistant
DX: M54.2 Cervicalgia (principal); M54.16 Radiculopathy, lumbar region
CPT/HCPCS: 99213

== ENCOUNTER → 2025-08-18 11:45 | Outpatient (BNVA) | payer MEDICARE, SELFPAY | PROVIDERS: PCP Internal Medicine; Visit Provider Physician Assistant | DX: M54.2 Cervicalgia (principal); M54.16 Radiculopathy, lumbar region; Z79.891 Long term (current) use of opiate analgesic | CPT/HCPCS: 99212 ==